=== PATIENT | male | born 1955 | race Caucasian/White ===

== ENCOUNTER → 2022-09-23 | Outpatient (CLI) | payer MEDICARE ==
[~2022-09-23] MED LIST: SODIUM CHLORIDE 0.9% 500 ML 500 ML in EMPTY BAG 1 BAG IV PRN
[2022-09-23 12:26] VITALS: PULSE 89; RESP 16; TEMP 97.7
[2022-09-23 12:29] LABS: MCH 28.6 pg (25.0-35.0); MCHC 32.5 g/dL (31.0-37.0); MCV 88.2 fL (80.0-100.0); Mean Platelet Volume 8.3; Platelet Count 229 k/uL (150-450); RBC 6.75 m/uL (4.30-5.90); RDW 15.7 % (11.5-15.5); WBC 11.3 k/uL (3.8-10.6)
[2022-09-23 12:41] LABS: HGB 19.3 gm/dL (13.0-17.5)
[2022-09-23 12:42] LABS: HCT 59.5 % (39.0-53.0)
[2022-09-23 13:09] VITALS: BP 109/74
== END ==
LOC: PROCWHC3 11:51
PROVIDERS: ATTEND Physician Assistant
DX: D75.1 Secondary polycythemia (principal)
CPT/HCPCS: 36415; 85027; 99195

== ENCOUNTER → 2023-01-02 | Outpatient (CLI) | payer MEDICARE ==
[2023-01-02 12:28] VITALS: BP 120/80; PULSE 87; RESP 16; TEMP 97.6
[2023-01-02 12:43] LABS: HGB 18.6 gm/dL (13.0-17.5); MCH 29.9 pg (25.0-35.0); MCV 90.6 fL (80.0-100.0); Mean Platelet Volume 8.8; Platelet Count 197 k/uL (150-450); RBC 6.21 m/uL (4.30-5.90); RDW 14.3 % (11.5-15.5); WBC 11.9 k/uL (3.8-10.6)
[2023-01-02 13:12] LABS: HCT 56.2 % (39.0-53.0)
== END ==
LOC: PROCWHC3 12:01
PROVIDERS: ATTEND Physician Assistant
DX: D75.1 Secondary polycythemia (principal)
CPT/HCPCS: 36415; 85027; 99195

== ENCOUNTER → 2023-02-14 | Outpatient (CLI) | payer MEDICARE ==
--- NOTE | 2023-02-14 16:30 | P.SLEEP ---
History of Present Illness H&P Date: 02/14/23 Chief Complaint: Sleep apnea This is a 57-year-old male patient was coming in for a sleep apnea evaluation. The patient has classical manifestations obstructive sleep apnea and the patient has loud snoring, sleep fragmentation, and his waken up choking and gasping for air in the middle of the night and his having long-term hypersomnia and sleepiness during the day. He also has secondary erythrocytosis and he has undergone previous phlebotomy. 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 He has limited on long-term and cognition with warfarin. He states that he has been diagnosed having obstructive sleep apnea many years back and the [facility]. Documentation is not available. Subsequently, he purchases on machine which is currently AT his treatment has not been successful over the years. Has chronic hypoxemic respiratory failure and the patient's pulse ox on room air is in order of 86%. He has home oxygen and he does not use it on a regular basis. His current Ona score is at 11. He has chronic fatigue and tiredness and sleepiness. He has chronic edema lower extremities. He does have signs and symptoms of cor pulmonale. He has gained significant amount of weight over the years and his weight is up significantly. He naps during the day. Chronically fatigued. Currently retired. No stroke. Review of Systems Constitutional: Reports daytime sleepiness, Reports fatigue, Reports weight gain Eyes: denies as per HPI, denies blurred vision, denies bulging eye, denies decreased vision, denies diplopia, denies discharge, denies dry eye, denies irritation, denies itching, denies pain, denies photophobia, denies loss of peripheral vision, denies loss of vision, denies tunnel vision/blind spots Ears: deny: decreased hearing, ear discharge, earache, tinnitus Ears, nose, mouth and throat: Reports as per HPI Breasts: absent: as per HPI, gynecomastia Cardiovascular: Reports decreased exercise tolerance, Reports dyspnea on exertion, Reports paroxysmal nocturnal dyspnea, Reports shortness of breath Respiratory: Reports dyspnea, Reports sleep apnea, Reports snoring Gastrointestinal: Reports as per HPI Genitourinary: Reports as per HPI Musculoskeletal: Reports gait dysfunction, Reports limitation of motion Musculoskeletal: bilateral: ankle stiffness, ankle swelling, absent: ankle pain Integumentary: Reports as per HPI, Reports wounds Neurological: Reports as per HPI Psychiatric: Reports as per HPI Endocrine: Reports fatigue Hematologic/Lymphatic: Reports as per HPI Allergic/Immunologic: Reports as per HPI Past Medical History Past Medical History: COPD, Diabetes Mellitus, Hypertension Additional Past Medical History / Comment(s): Heart valve replacement, obesity, diabetes mellitus type 2, hyperlipidemia, chronic atrial fibrillation, COPD, chronic hypoxic respiratory failure, peripheral neuropathy History of Any Multi-Drug Resistant Organisms: None Reported Past Surgical History: Adenoidectomy, Hernia Repair, Tonsillectomy Additional Past Surgical History / Comment(s): HEART VALVE TRANSPLANT - 2013/TAVR Smoking Status: Current every day smoker, Former smoker Medications and Allergies Home Medications Medication Instructions Recorded Confirmed Type Aspirin [Adult Low Dose Aspirin EC] 81 mg PO DAILY 09/23/22 01/02/23 History Gabapentin 600 mg PO TID 09/23/22 01/02/23 History Insulin Aspart Scale Rx Form 1 each MISCELLANE DIRECTED 09/23/22 01/02/23 History [NovoLOG Outpatient Scale Rx Form] Warfarin [Coumadin] 10 mg PO DAILY 09/23/22 01/02/23 History Atorvastatin [Lipitor] 1 tab PO DAILY 01/02/23 01/02/23 History Torsemide [Demadex] 1 tab PO DAILY 01/02/23 01/02/23 History lisinopriL [Zestril] 1 tab PO DAILY 01/02/23 01/02/23 History metFORMIN HCL ER [Glucophage XR] 1,000 mg PO BID 01/02/23 01/02/23 History Allergies Allergy/AdvReac Type Severity Reaction Status Date / Time No Known Allergies Allergy Verified 12/05/22 09:13 Physical Exam BP is 94/67, pulse is 90, respirations 16, temperature is 98.2 and weight is down 15 pounds, height is 5 feet 11 inches, BMI is 33.3, Ona score is at 11 and the size of the neck is 20.5 inches. Pulse ox on room air is 86%. Gen. appearance the patient look cyanotic and has blue lips. Pulse ox is 86% on room air oxygen. He is morbidly obese. Head exam was generally normal. There was no scleral icterus or corneal arcus. Mucous membranes were moist. Neck was supple and without jugular venous distension, thyromegaly, or carotid bruits. Carotids were easily palpable bilaterally. There was no adenopathy. The patient has significant crowding of posterior pharynx with a Mallampati class IV Lungs sounds are diminished bilaterally along with that this could excluded wheezes Heart sounds are irregular S1-S2 and the patient has systolic ejection murmur grade 3/6 heard over the apex Abdomen is obese soft nontender. Organs cannot be accurately palpated. Extremities show cyanosis, +1 pitting edema, pulses are diminished at the present in all 4 extremities. Neurologically, the patient is awake and alert and the patient does not have any focal neurological deficit. Cranial nerves are essentially intact. Examination of the skin revealed no evidence of significant rashes, suspicious appearing nevi or other concerning lesions. Assessment and Plan Plan: Obstructive sleep apnea. The patient is coming in for evaluation and treatment. Note that has been diagnosed having was in [facility] many years back. He has purchased a CPAP machine online. His treatment has been unsuccessful and the patient is excessively symptomatic at this point in time. He does have also signs of cor pulmonale and right-sided heart failure. Chronic hypersomnia, Ona score of 11 Chronic hypoxic respiratory failure probably due to underlying COPD and obesity. Possibility with obesity hypoventilation syndrome cannot be completely ruled out Morbid obesity with a BMI of 43 Secondary erythrocytosis History of aortic valve disease with a previous valve replacement, percutaneous COPD Hyperlipidemia Hypertension Diabetes mellitus type 2 Chronic into fibrillation maintain on anticoagulation with warfarin Lower extremity edema Peripheral neuropathy Plan The patient will need screening polysomnogram to be followed up by a CPAP/BiPAP titration The patient needs to supplement himself with oxygen. Note that his pulse ox on room air is 86% and the patient has not been compliant to oxygen therapy and importance of oxygen therapy explained to the patient at length Optimize comorbidities including COPD and cardiac disease Weight loss We'll continue to follow make further recommendations based on results of the po lysomnography. Sleep Note - Sleep Note Sleep Note: Temperature: Pulse Rate: Respiratory Rate: Blood Pressure: SpO2: Height: Weight: BMI: Neck Circumference:
== END ==
LOC: 3 N SLEEP 13:00
PROVIDERS: ATTEND Internal Medicine Critical Care Medicine
DX: G47.33 Obstructive sleep apnea (adult) (pediatric) (principal); E66.01 Morbid (severe) obesity due to excess calories; Z68.41 Body mass index [BMI] 40.0-44.9, adult; Z95.2 Presence of prosthetic heart valve; D75.1 Secondary polycythemia; J44.9 Chronic obstructive pulmonary disease, unspecified; I10 Essential (primary) hypertension; E78.5 Hyperlipidemia, unspecified; I48.91 Unspecified atrial fibrillation; F17.200 Nicotine dependence, unspecified, uncomplicated; E11.42 Type 2 diabetes mellitus with diabetic polyneuropathy; Z79.82 Long term (current) use of aspirin; Z79.4 Long term (current) use of insulin; Z79.01 Long term (current) use of anticoagulants; Z79.899 Other long term (current) drug therapy; Z79.84 Long term (current) use of oral hypoglycemic drugs
CPT/HCPCS: 99211

== ENCOUNTER → 2023-02-20 | Outpatient (CLI) | payer MEDICARE ==
[2023-02-20 09:31] VITALS: TEMP 97.8
[2023-02-20 10:32] LABS: Basophils # (A) 0.3 k/uL (0-0.2); Basophils % (A) 2 %; Eosinophils # (A) 0.1 k/uL (0-0.7); Eosinophils % (A) 1 %; Hypochromasia Slight; Lymphocytes # (A) 1.7 k/uL (1.0-4.8); Lymphocytes % (A) 13 %; MCH 28.2 pg (25.0-35.0); MCHC 31.3 g/dL (31.0-37.0); MCV 90.1 fL (80.0-100.0); Mean Platelet Volume 9.3; Monocytes # (A) 0.6 k/uL (0-1.0); Monocytes % (A) 5 %; Neutrophils # (A) 10.3 k/uL (1.3-7.7); Neutrophils % (A) 78 %; Platelet Count 241 k/uL (150-450); RDW 15.1 % (11.5-15.5); WBC 13.2 k/uL (3.8-10.6)
[2023-02-20 10:35] LABS: HCT 57.7 % (39.0-53.0)
[2023-02-20 10:53] VITALS: BP 86/60; PULSE 89; RESP 16
== END | disposition home or self-care (01) ==
LOC: PROCWHC3 09:13
PROVIDERS: ATTEND Family Medicine
DX: D75.1 Secondary polycythemia (principal)
CPT/HCPCS: 36415; 85025; 99195